=== PATIENT | female | born 1995 | race Caucasian/White ===

== ENCOUNTER → 2019-03-07 | Outpatient (CLI) | payer BC | LOC: M.ULTRA 07:27 | DX: N91.2 Amenorrhea, unspecified (principal) ==

== ENCOUNTER 2021-03-08 19:29 | Emergency (ER) | payer BC ==
[~2021-03-08] VITALS: Ht 157.5 cm; Wt 96.6 kg
[2021-03-08] MEDS ORDERED: LEVOTHYROXINE13 MCG PO (19:44)
[2021-03-08 21:25] LABS: INFLUENZA A ANTIGEN Negative (Negative); INFLUENZA B ANTIGEN Negative (Negative)
[2021-03-08 21:49] VITALS: BP 129/92
== END 2021-03-08 21:49 | disposition home or self-care (01) ==
LOC: M.ERS 19:29
PROVIDERS: Nurse Practitioner Psychiatric/Mental Health
DX: B34.9 Viral infection, unspecified (principal); Z20.822 Contact with and (suspected) exposure to COVID-19; Z98.890 Other specified postprocedural states